=== PATIENT | female | born 1995 | race Caucasian/White ===

== ENCOUNTER 2019-03-14 09:53 | Outpatient (CLI) | payer OTHER ==
--- NOTE | 2019-03-14 12:58 | MRI ---
MRI LEFT KNEE: Date: 03/14/2019 PROVIDED CLINICAL HISTORY: Pain. FINDINGS: The anterior cruciate ligament, posterior cruciate ligament, medial collateral ligament, and lateral collateral ligamentous complex demonstrate an intact MR appearance. There is thickening and signal inhomogeneity involving the proximal to mid patellar tendon compatible with patellar tendinitis. There is focal intrasubstance partial thickness tearing involving the prox imal most patellar tendon centrally. There is edema within the subjacent infrapatellar fat. Patella a lta is noted. The medial and lateral menisci demonstrate no evidence for tear. No focal articular cartilage defect apparent. The amount of fluid within the knee joint appears physiologic. There is edema involving the prefemoral fat. No focal concerning regional marrow or muscular signal abnormality apparent. IMPRESSION: 1. Patellar tendinitis with superimposed partial thickness nonattenuating interstitial tearing. 2. Patella deidre and edema within the infrapatellar fat, suggesting a patellar tracking abnormality. 3. Edema within the prefemoral fat, suggesting impingement. POS: OFF
== END 2019-03-14 09:54 | disposition home or self-care (01) ==
LOC: TBSIIMAG 09:53
PROVIDERS: ATTEND Orthopaedic Surgery
DX: M23.92 Unspecified internal derangement of left knee (principal); M76.52 Patellar tendinitis, left knee